=== PATIENT | male | born 1995 ===

== ENCOUNTER 2022-05-11 06:54 | Outpatient (CLI) | payer OTHER ==
--- NOTE | 2022-05-11 15:16 | MRI Report ---
PROCEDURE: ANKLE WO - RT INDICATIONS: STRAIN OF RIGHT ACHILLES TECHNIQUE: Noncontrast Magnetic Resonance Imaging (MRI) of the ankle/hindfoot was performed utilizing the follow ing sequences on a 3.0 Mery Siemens MRI: sagittal T1 spin echo, sagittal STIR, axial PD fast spin ec ho, axial T2 fast spin echo with fat saturation, coronal T2 spin echo with fat saturation, and PD fas t spin echo with fat saturation. COMPARISON: None. FINDINGS: Image quality: Diagnostic. Bones and joints: No acute fracture, dislocation, or suspicious osseous lesion of the midfoot or hindfoot bones is pres ent. No significant midfoot or hindfoot joint effusions are present. The ankle mortise is well-mainta ined. No osteochondral defects are evident involving the tibial plafond toward the talar dome. No sig nificant degenerative changes of the midfoot or hindfoot joints are present. Medial structures: The deltoid ligament and the spring ligament are mildly thickened. The posterior tibialis, flexor digitorum longus, and flexor hallucis longus tendons are intact and wi thin normal limits. The posterior tibial neurovascular bundle appears normal within the tarsal tunnel , without extrinsic mass effect. Lateral structures: The anterior and posterior distal tibiofibular ligaments are also intact. The anterior talofibular li gament, posterior talofibular ligament, and calcaneofibular ligament are intact. The peroneus longus and peroneus brevis tendons are intact and otherwise unremarkable. The sinus tarsi demonstrates normal fatty signal. Anterior structures: The tibialis anterior, extensor hallucis longus, and extensor digitorum longus tendons appear intact. Posterior and plantar structures: There is high-grade partial thickness tear involving Achilles tendon approximately 4.5 cm from its po sterior calcaneal insertion with up to 2.9 cm proximal retraction of torn tendon fibers with moderate amount of fluid and surrounding edema. The medial and lateral bands of the plantar fascia are within normal limits. IMPRESSION: 1. High-grade partial thickness tear involving Achilles tendon approximately 4.5 cm from its insertio n on posterior calcaneus with up to 2.9 cm proximal retraction of torn tendon fibers and moderate shoaib unt of fluid and edema at the site of rupture. 2. Low grade sprain/partial thickness tear involving deltoid ligament and spring ligament complex. La teral ankle ligaments are intact. 3. Rest of the ankle tendons are intact. 4. No marrow edema. No fracture or dislocation. Reviewed by: Manuel Ramon MD on 05/11/2022 3:14 PM PST Approved by: Manuel Ramon MD on 05/11/2022 3:14 PM PST Station ID: [id number]
== END 2022-05-11 06:55 | disposition home or self-care (01) ==
LOC: DI 06:54
PROVIDERS: ATTEND Physician Assistant
DX: S86.011A Strain of right Achilles tendon, initial encounter (principal); S93.421A Sprain of deltoid ligament of right ankle, initial encounter; S93.491A Sprain of other ligament of right ankle, initial encounter